=== PATIENT | female | born 1995 | race Caucasian/White ===

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

== ENCOUNTER 2021-12-18 05:31 | Outpatient (CLI) | payer OTHER ==
[~2021-12-18] VITALS: Ht 165.1 cm; Wt 99.8 kg
[2021-12-21] MEDS ORDERED: MONT10TA21 PO (13:58)
[2021-12-21] MEDS ORDERED: LEVO75TA PO (13:58)
[2021-12-21] MEDS ORDERED: NORG1TAB33 PO (13:58)
[2021-12-21] MEDS ORDERED: PANT40TA52 PO (13:58)
== END 2021-12-21 14:03 | disposition home or self-care (01) ==
LOC: PREOP 05:31
PROVIDERS: ATTEND Internal Medicine
DX: Z01.818 Encounter for other preprocedural examination (principal); R10.13 Epigastric pain; R10.32 Left lower quadrant pain; R11.2 Nausea with vomiting, unspecified; Z86.010 Personal history of colon polyps

== ENCOUNTER 2021-12-25 07:08 | Day surgery (SDC) | payer OTHER ==
--- NOTE | 2021-12-18 06:35 | HISTORY AND PHYSICAL ---
DATE OF SERVICE: PANENDOSCOPY HISTORY AND PHYSICAL HISTORY OF PRESENT ILLNESS: The patient is a 26-year-old white female who reports at least over the past three weeks, increased problems for the most part generalized abdominal pain, although worse in the epigastrium and left lower quadrant, follows meals, sometimes associated with nausea. She has many times without immediate sensation of discomfort after eating. If she does not eat, she is left with a lower level, tight sensation with a bloated feeling. This has been associated with postprandial bowel movements loose without evidence for blood, not black or tarry either. She has an interesting past GI history and at the age of 6 she was noted to have left sided colon polyposis syndrome where she actually had polyps prolapsing out of the rectum. She went to [facility] where the largest polyps were removed, and she returned a year later expecting to have more polyps removed and having been told rather poor long-term prognosis and consideration for colectomy. When she returned; however, everything was clear and they felt that it might have been an autoimmune issue. She did not reportedly have gluten sensitivity. They did cut out dairy, which they felt may have been helping. She had another colonoscopy at the age of 19 that did not reveal any reported abnormality. She has had some rare episodes of constipation but more often has diarrhea. Several years ago, she was diagnosed with hypothyroidism and has done well. Recently her Synthroid was switched L- thyroxine. She did not do well on this, has been back on Synthroid for the last several months, reporting that her energy level has improved. She denies palpitations, tremor and despite decreased p.o. intake she is surprised that she has not lost weight. She has not had any travel out of the country. PAST MEDICAL HISTORY: Other than stated above. She does have seasonal allergies, for which she is on several different medications including montelukast 10 mg daily. ADDITIONAL HISTORY: She did try some Protonix, which did not help out her abdominal symptoms. PAST SURGICAL HISTORY: Noncontributory. No reported past surgeries. FAMILY HISTORY: There is no family history for any polyposis syndromes, one second-degree relative with Crohn's disease, no issues with her parents. SOCIAL HISTORY: She reports no alcohol intake. No smoking history. She is currently getting I believe her doctorate in psychology. PHYSICAL EXAMINATION: GENERAL: Reveals a white female during the interview did not appear to be in acute distress, but reports that at times, her pain is incapacitating. VITAL SIGNS: Weight was 228 pounds, blood pressure 120/80. HEENT: Unremarkable. Sclerae nonicteric. CHEST: Clear to auscultation. CARDIOVASCULAR: Reveals a regular rate and rhythm without murmur, S3 or S4. ABDOMEN: She has generalized abdominal tenderness with some mild distention but is most prominent in the epigastrium and left lower quadrant of the abdomen. Bowel sounds are present, but hypoactive. No bruits noted. No borborygmi noted. EXTREMITIES: Reveal no cyanosis, clubbing or edema. ASSESSMENT AND PLAN: With past history of significant most prominently left sided colon polyps and current left lower quadrant abdominal pain as well as epigastric pain, the patient is being set up for colonoscopy and EGD. We did obtain a chemistry panel, CBC and a lipase level today and we will recommend abdominal ultrasound if her symptoms cannot be explained on the findings at panendoscopy. I thank you for the referral of this pleasant young lady. Job ID: [id number] DocumentID: [id number] Dictated Date: 12/17/2021 16:44:57 [employer] Date: 12/17/2021 17:14:34 Dictated By: WYATT PIZANO MD [facility]
[~2021-12-25] VITALS: Ht 165.1 cm; Wt 99.8 kg
[~2021-12-25 07:08] MED LIST changes: -GADOBUTROL 10 MMOL/10 ML (GADAVIST) VIAL IV ONE; +LEVO75TA PO; +MONT10TA21 PO; +NORG1TAB33 PO; +PANT40TA52 PO
[2021-12-25] MEDS ORDERED: LACTATED RINGERS 1,000 ML IV STA (07:10)
[2021-12-25] MEDS ORDERED: HURRICAINE EXT TUBE (BENZOCAINE) XX PRN (07:15)
[2021-12-25 07:26] VITALS: BP 131/84
[2021-12-25] MEDS ORDERED: PROPOFOL INJECTION 50 ML IV ONE ×2 (07:29→08:08)
[2021-12-25] MEDS ORDERED: MIDAZOLAM 2 MG/2 ML (VERSED) VIAL ONE (07:29)
--- NOTE | 2021-12-25 07:56 | Pre-Op Note & Conscious Sedat ---
Pre-Operative Progress Note Date H&P Reviewed: Dec 25, 2021 Time H&P Reviewed: 07:40 History & Physical: H&P Reviewed, Patient Examed, No changes noted Pre-Op Diagnosis: Diarrhea epigastric pain Conscious Sedation Pre-Proced ASA Score 2 For ASA 3 and 4: Consider anesthesia and medical clearance. Also, for patients with a history of failed moderate sedation consider anesthesia. Airway Lungs Heart ASA score ASA 1: a normal healthy patient ASA 2: a patient with a mild systemic disease (mid diabetes, controlled hypertension, obesity ASA 3: a patient with a severe systemic disease that limits activity (angina, COPD, prior Myocardial infarction) ASA 4: a patient with an incapacitating disease that is a constant threat to life (CHF, renal failure) ASA 5: a moribund patient not expected to survive 24 hrs. (ruptured aneurysm) ASA 6: a declared brain- patient whose organs are being harvested. For emergent operations, add the letter E after the classification Mallampati Classification Grade 2 Sedation Plan Analgesia, Amnesia, Plan communicated to team members, Discussed options with patient/fam, Discussed risks with patient/fam The patient is an appropriate candidate to undergo the planned procedure, sedation, and anesthesia. The patient immediately re-assessed prior to indication. WYATT PIZANO MD Dec 25, 2021 07:56
[2021-12-25 08:30] VITALS: BP 101/58
--- NOTE | 2021-12-25 08:30 | Anesthesia-General Post-Op ---
MAC Patient Condition Mental Status/LOC: Same as Preop Cardiovascular: Satisfactory Nausea/Vomiting: Absent Respiratory: Satisfactory Pain: Controlled Complications: Absent Post Op Complications Complications None Follow Up Care/Instructions Patient Instructions None needed. Anesthesiology Discharge Order Discharge Order Patient is doing well, no complaints, stable vital signs, no apparent adverse anesthesia problems. No complications reported per nursing. CHICHO MCCLURE CRNA Dec 25, 2021 08:30
[2021-12-25 08:35] VITALS: BP 102/57
[2021-12-25 08:40] VITALS: BP 102/61
[2021-12-25 08:45] VITALS: BP 121/75
[2021-12-25 09:16] VITALS: BP 121/79
--- NOTE | 2021-12-25 11:14 | OPERATIVE REPORT ---
DATE OF SERVICE: PANENDOSCOPY SUMMARY INDICATION FOR THE PROCEDURE: Epigastric pain, nausea, vomiting, diarrhea, and past history of colon polyps. DESCRIPTION OF PROCEDURE: The patient was placed in the left lateral decubitus position. The endoscope was inserted in the oral cavity and under direct visualization, the esophagus was intubated. The scope was passed down the esophagus through the stomach and second portion of the duodenum. Careful inspection was made as the endoscope was withdrawn. FINDINGS: The posterior pharynx, epiglottis, arytenoid aperture, and true and false vocal folds were unremarkable to gross inspection. The proximal, mid and distal esophagus was unremarkable. The Z line was distinct without evidence to suggest underlying erosive esophagitis, rings, webs or strictures. The cardia and the fundus of the stomach were unremarkable. There was linear predominantly linear erythema noted in the antrum. A biopsy was obtained and submitted for Helicobacter and histopathology. The pylorus, pyloric channel, duodenal bulb and second portion of the duodenum were unremarkable with normal-appearing villous architecture. Photograph was obtained. ASSESSMENT: Antral gastritis without evidence for peptic ulcer disease was noted. No other significant abnormalities were appreciated. A biopsy was obtained and submitted for Helicobacter and histopathology. This was otherwise unremarkable endoscopy. Prior to undergoing colonoscopy, a digital rectal evaluation was performed. Anal sphincter tone was normal and the perianal reflexes intact. The colonoscope was inserted into the rectum and under direct visualization advanced to the cecum. The terminal ileum was intubated and the distal 10 cm of terminal ileum were inspected as well. Careful inspection was made as colonoscope withdrawn. Quality of prep was good. FINDINGS: There was no evidence for internal or external hemorrhoids. The rectum, sigmoid colon, descending colon, splenic flexure, transverse colon, hepatic flexure, ascending colon, and cecum as well as distal 10 cm of terminal ileum were unremarkable to gross inspection. A biopsy was obtained from the rectum and submitted for evidence for histopathology to rule out underlying microscopic colitis. ASSESSMENT: Normal colonoscopy to the cecum. We will await histopathology report. If Helicobacter is present, will initiate eradication therapy. In the meantime, I have recommended IBgard capsule 5 to 10 minutes prior to meals and as needed for epigastric discomfort and bloating. The patient was reassured by today's findings. I thank you for the referral. Job ID: [id number] DocumentID: [id number] Dictated Date: 12/25/2021 08:37:47 [employer] Date: 12/25/2021 11:13:33 Dictated By: WYATT PIZANO MD MTDD
== END 2021-12-25 09:25 | disposition home or self-care (01) ==
LOC: ENDO 07:08
PROVIDERS: ATTEND Internal Medicine
DX: K63.89 Other specified diseases of intestine (principal); K29.70 Gastritis, unspecified, without bleeding; Z86.010 Personal history of colon polyps; E03.9 Hypothyroidism, unspecified; Z79.890 Hormone replacement therapy; E66.9 Obesity, unspecified; Z68.36 Body mass index [BMI] 36.0-36.9, adult
CPT/HCPCS: 84703